=== PATIENT | female | born 1945 ===

== ENCOUNTER 2016-07-12 09:43 | Outpatient (CLI) | payer MEDICARE, BC ==
[2016-07-12 12:56] LABS: ALT (SGPT) 21 U/L (0-55); AST (SGOT) 32 U/L (5-34); Albumin 4.4 g/dL (3.4-4.8); Alkaline Phosphatase 66 U/L (40-150); Anion Gap 15 mmol/L (10-20); BUN (Urea Nitrogen) 17 mg/dL (9.8-20.1); Bilirubin, Total 0.8 mg/dL (0.2-1.2); Calc. Creatinine Clearance 0 mL/min (70-130); Carbon Dioxide 24 mmol/L (23-31); Cardiac Risk 2.5 (Less than 4.5); Chloride 106 mmol/L (98-107); Cholesterol 221 mg/dL (< 200 Desired); Estimated GFR-MDRD 65; Globulin 2.4 g/dL (2.4-3.5); Glucose 85 mg/dL (80-115); HDL Cholesterol 87 mg/dL (>60 Neg Risk); LDL Cholesterol, Calculated 123 mg/dL; Protein, Total 6.8 g/dL (5.8-8.1); Sodium 140 mmol/L (136-145); Triglycerides 55 mg/dL (Less than 150)
[2016-07-12 13:38] LABS: Bilirubin Negative (Negative); Blood, Urine Negative (Negative); Clarity Clear (Clear); Glucose, Urine (Dipstick) Negative (Negative); Leukocyte Negative (Negative); Nitrite Negative (Negative); Protein, Urine (Dipstick) Negative (Neg-Trace); Specific Gravity, Urine 1.015 (1.005-1.030); Urobilinogen 0.2 mg/dL (0.2-1.0)
[2016-07-12 13:50] LABS: #Basophils 0.1 thou/uL (0.0-0.2); #Eosinphils 0.1 thou/uL (0.0-0.7); #Lymphocytes 1.8 thou/uL (1.20-3.40); #Monocytes 0.4 thou/uL (0.11-0.59); #Neutrophils 2.9 thou/uL (1.40-6.50); %Basophils 1.4 % (0.0-1.0); %Eosinophils 2.5 % (0.0-10.0); %Lymphocytes 33.7 % (21.0-51.0); %Monocytes 7.5 % (0.0-10.0); Hemoglobin 13.6 g/dL (12.0-16.0); MDiff Complete? YES; Mean Corpuscular HGB CONC 32.2 g/dL (32.0-36.0); Mean Corpuscular Hemoglobin 32.3 pg (27.0-31.0); Mean Platelet Volume 10.5 fL (7.4-10.4); Platelet Count 266 thou/uL (130-400); RBC Distribution Width 12.2 % (11.5-14.5); Red Blood Cell (RBC) Count 4.22 mill/uL (4.20-5.40); White Blood Cell (WBC) Count 5.4 thou/uL (4.8-10.8)
[2016-07-12 13:51] LABS: Anisocytosis SLIGHT = 6-15 cells (100X) (0-5/hpf); Giant Platelets SLIGHT; PLT Morphology Comment Appears Adequate; Rouleaux Formation SLIGHT = 1-5 cells (100X) (None Seen)
== END 2016-07-12 09:44 | disposition home or self-care (01) ==
LOC: NAVSJIPCSP 09:43
PROVIDERS: ATTEND Internal Medicine
DX: M85.80 Other specified disorders of bone density and structure, unspecified site (principal)
CPT/HCPCS: 36415; 80053; 80061; 81003; 84443; 85025